=== PATIENT | male | born 1965 | race Caucasian/White ===

== ENCOUNTER 2017-09-03 22:41 | Emergency (ER) | payer MEDICAID ==
[~2017-09-03] VITALS: Ht 182.9 cm; Wt 84.4 kg
[2017-09-03 22:43] VITALS: BP 154/89
[2017-09-03] MEDS ORDERED: KETOROLAC 60 MG/2 ML IM ONE (23:00)
[2017-09-03] MEDS ORDERED: OXYcodone/APAP 5/325MG TABLET PO ONE (23:00)
[2017-09-03] MEDS ORDERED: OXYcodone/APAP 5/325MG TABLET ONE (23:18)
[2017-09-03] MEDS ORDERED: KETOROLAC 30 MG/1 ML ONE (23:18)
== END 2017-09-04 00:01 | disposition home or self-care (01) ==
LOC: ED 23:36
DX: M25.522 Pain in left elbow (principal); M25.532 Pain in left wrist; F17.210 Nicotine dependence, cigarettes, uncomplicated
CPT/HCPCS: 73080; 73110; 96372; 99284; J1885

== ENCOUNTER 2018-03-02 11:50 | Inpatient (IN) | payer MEDICAID ==
[~2018-03-02] VITALS: Ht 182.9 cm; Wt 82.4 kg
[2018-03-02] MEDS ORDERED: SODIUM CHLORIDE FLUSH 10ML SYR IVF ONE (12:30)
[2018-03-02] MEDS ORDERED: ONDANSETRON ODT 4 MG ONE (12:45)
[2018-03-02] MEDS ORDERED: MORPHINE SULFATE 4 MG/ML, 1ML ONE ×2 (12:45→15:26)
[2018-03-02] MEDS: MORPHINE SULFATE 4 MG/ML, 1ML IVPush PRN ×2 (12:48→15:33)
[2018-03-02 12:49] LABS: BASOPHILS # (AUTO) 0.07 x10^3/uL (0-0.1); BASOPHILS % (AUTO) 1 % (0-1); EOSINOPHILS # (AUTO) 0.03 x10^3/uL (0-0.4); EOSINOPHILS % (AUTO) 0 % (1-7); LYMPHOCYTES % (AUTO) 33 % (22-44); MD NO; MEAN CORPUSCULAR HEMOGLOBIN 31.4 pg (27.5-34.5); MEAN CORPUSCULAR HGB CONC 34.1 g/dL (33.2-36.2); MEAN CORPUSCULAR VOLUME 91.9 fL (81-97); MEAN PLATELET VOLUME 9.1 fL (7.4-10.4); MONOCYTES % (AUTO) 6 % (2-9); NEUTROPHILS # (AUTO) 4.71 x10^3/uL (1.8-6.8); NEUTROPHILS % (AUTO) 60 % (42-75); PLATELET COUNT 228 x10^3/uL (130-400); RED BLOOD COUNT 5.12 x10^6/uL (4.38-5.82)
[2018-03-02 12:58] LABS: ALANINE AMINOTRANSFERASE 36 U/L (12-78); ALBUMIN 4.1 g/dL (3.4-5.0); ANION GAP 7 mmol/L (5-15); CALCIUM 9.1 mg/dL (8.5-10.1); CHLORIDE 106 mmol/L (98-107); CREATININE 0.83 mg/dL (0.7-1.3)
[2018-03-02] MEDS ORDERED: ONDANSETRON ODT 8 MG PO ONE (13:00)
[2018-03-02 13:02] LABS: ALKALINE PHOSPHATASE 74 U/L (45-117); BILIRUBIN,TOTAL 0.6 mg/dL (0.2-1.0); TOTAL PROTEIN 7.3 g/dL (6.4-8.2); TROPONIN I < 0.015 ng/mL (0.000-0.045)
[2018-03-02] MEDS ORDERED: MORPHINE SULFATE 4 MG/ML, 1ML IVPush PRN (15:30)
[2018-03-02] MEDS ORDERED: ONDANSETRON 2MG/ML, 2ML IVP PRN (16:00)
[2018-03-02] MEDS ORDERED: NITROGLYCERIN 0.4 MG/SPRAY SL PRN (16:00)
[2018-03-02] MEDS ORDERED: morphine SULFATE 10 MG/ML, 1ML IV PRN (16:00)
[2018-03-02] MEDS ORDERED: NICOTINE 21 MG/24 HR PATCH.TD24 TD ONE (16:00)
[2018-03-02] MEDS ORDERED: KETOROLAC 30 MG/1 ML IVPush PRN (16:00)
[2018-03-02] MEDS ORDERED: ENOXAPARIN 40 MG/0.4 ML SQ SCH (16:00)
[2018-03-02] MEDS ORDERED: LIDODERM 5% PATCH TD SCH (16:00)
[2018-03-02] MEDS ORDERED: ACETAMINOPHEN 650 MG/20.3 ML UDC PO PRN (16:00)
[2018-03-02] MEDS ORDERED: NITROGLYCERIN 0.4 MG BOTTLE (25 TABS) SL PRN (16:00)
[2018-03-02] MEDS ORDERED: NITROGLYCERIN SINGLE TAB 0.4 MG SL PRN (16:00)
[2018-03-02 17:34] VITALS: BP 113/79
[2018-03-02] MEDS: METHOCARBAMOL 500 MG TABLET PO SCH ×2 (17:39→21:17)
[2018-03-02 18:22] LABS: TROPONIN I < 0.015 ng/mL (0.000-0.045)
[2018-03-02 18:47] VITALS: BP 109/72
[2018-03-02] MEDS: SODIUM CHLORIDE FLUSH 10ML SYR IVF SCH (21:18)
[2018-03-03 00:53] VITALS: BP 105/71
[2018-03-03 01:17] LABS: TROPONIN I < 0.015 ng/mL (0.000-0.045)
[2018-03-03 05:11] LABS: CHOL/HDL RATIO 3.4; LDL/HDL RATIO 2.2 (0.5-3.0)
[2018-03-03] MEDS ORDERED: ASPIRIN 325 MG TABLET EC PO SCH (06:00)
[2018-03-03] MEDS: METHOCARBAMOL 500 MG TABLET PO SCH ×2 (06:33→11:13)
[2018-03-03 07:10] VITALS: BP 114/74
[2018-03-03] MEDS: SODIUM CHLORIDE FLUSH 10ML SYR IVF SCH (08:31)
[2018-03-03] MEDS ORDERED: METH500T7 PO (13:13)
[2018-03-03] MEDS ORDERED: ACET650S21 PO (13:13)
[2018-03-03] MEDS ORDERED: IBUP-1484 PO (13:13)
== END 2018-03-03 14:26 | disposition home or self-care (01) | DRG 206 ==
LOC: ED 14:26 → EDIP 15:19 → 5SO 17:19 → DCLOUNGE 03-03 14:13
PROVIDERS: ADMIT Internal Medicine; ATTEND Internal Medicine
DX: M94.0 Chondrocostal junction syndrome [Tietze] (principal); F17.200 Nicotine dependence, unspecified, uncomplicated; Z79.82 Long term (current) use of aspirin; Z82.0 Family history of epilepsy and other diseases of the nervous system; Z83.3 Family history of diabetes mellitus; Z87.442 Personal history of urinary calculi
CPT/HCPCS: 36415; 71045; 78452; 80053; 80061; 83735; 84484; 85025; 93005; 93017; 96374; 96376; J1650; Q0162; A9502; C9898

== ENCOUNTER 2018-05-13 08:21 | Emergency (ER) | payer MEDICAID, OTHER ==
[~2018-05-13] VITALS: Ht 182.9 cm; Wt 81.3 kg
[~2018-05-13 08:21] MED LIST: ACET650S21 PO; IBUP-1484 PO; METH500T7 PO
[2018-05-13] MEDS ORDERED: KETOROLAC 30 MG/1 ML ONE (09:14)
[2018-05-13] MEDS ORDERED: HYDROcodone/APAP 5/325 TABLET ONE (09:50)
[2018-05-13] MEDS ORDERED: HYDROcodone/APAP 5/325 TABLET PO ONE (10:00)
[2018-05-13] MEDS ORDERED: KETOROLAC 30 MG/1 ML IM ONE (10:00)
[2018-05-13 10:31] VITALS: BP 115/68
== END 2018-05-13 10:33 | disposition home or self-care (01) ==
LOC: ED 10:15
DX: G89.11 Acute pain due to trauma (principal); M25.562 Pain in left knee; F17.210 Nicotine dependence, cigarettes, uncomplicated
CPT/HCPCS: 29505; 73564; 96372; 99284; J1885

== ENCOUNTER 2018-07-11 12:21 | Emergency (ER) | payer MEDICAID, OTHER ==
[~2018-07-11] VITALS: Ht 182.9 cm; Wt 81.3 kg
[2018-07-11 13:04] LABS: BASOPHILS # (AUTO) 0.05 x10^3/uL (0-0.1); BASOPHILS % (AUTO) 1 % (0-1); EOSINOPHILS # (AUTO) 0.04 x10^3/uL (0-0.4); EOSINOPHILS % (AUTO) 0 % (1-7); LYMPHOCYTES % (AUTO) 26 % (22-44); MD NO; MEAN CORPUSCULAR HEMOGLOBIN 31.6 pg (27.5-34.5); MEAN CORPUSCULAR HGB CONC 33.7 g/dL (33.2-36.2); MEAN CORPUSCULAR VOLUME 93.8 fL (81-97); MEAN PLATELET VOLUME 8.7 fL (7.4-10.4); MONOCYTES # (AUTO) 0.46 x10^3/uL (0.2-0.8); MONOCYTES % (AUTO) 5 % (2-9); NEUTROPHILS # (AUTO) 6.34 x10^3/uL (1.8-6.8); NEUTROPHILS % (AUTO) 68 % (42-75); PLATELET COUNT 262 x10^3/uL (130-400); RED BLOOD COUNT 5.58 x10^6/uL (4.38-5.82); RED CELL DISTRIBUTION WIDTH 14.3 % (9.4-14.8)
[2018-07-11 13:19] LABS: ALANINE AMINOTRANSFERASE 44 U/L (12-78); ALBUMIN 4.4 g/dL (3.4-5.0); ANION GAP 8 mmol/L (5-15); CALCIUM 9.7 mg/dL (8.5-10.1); CHLORIDE 103 mmol/L (98-107); CREATININE 0.89 mg/dL (0.7-1.3)
[2018-07-11 13:21] LABS: ALKALINE PHOSPHATASE 79 U/L (45-117); BILIRUBIN,TOTAL 0.6 mg/dL (0.2-1.0); TOTAL PROTEIN 8.3 g/dL (6.4-8.2)
[2018-07-11 14:34] LABS: CULTURE INDICATED? YES; MICROSCOPIC INDICATED
[2018-07-11] MEDS ORDERED: MAALOX/HYOSCYAMINE/LIDOCAINE 45 ML BTL PO ONE (15:00)
[2018-07-11] MEDS ORDERED: MAALOX/HYOSCYAMINE/LIDOCAINE 45 ML BTL ONE (15:23)
[2018-07-11 16:39] VITALS: BP 132/78
== END 2018-07-11 17:10 | disposition home or self-care (01) ==
LOC: ED 17:04
DX: R10.84 Generalized abdominal pain (principal); F17.200 Nicotine dependence, unspecified, uncomplicated
CPT/HCPCS: 36415; 80053; 81001; 83690; 85025; 87086; 99283

== ENCOUNTER 2019-11-24 15:37 | Emergency (ER) | payer OTHER ==
[~2019-11-24] VITALS: Ht 182.9 cm; Wt 86.8 kg
[~2019-11-24 15:37] MED LIST changes: -IBUP-1484 PO; +IBUP-1902 PO
[2019-11-24 15:39] VITALS: BP 135/72
[2019-11-24 16:14] LABS: BASOPHILS # (AUTO) 0.04 x10^3/uL (0-0.1); BASOPHILS % (AUTO) 1 % (0-1); EOSINOPHILS # (AUTO) 0.05 x10^3/uL (0-0.4); EOSINOPHILS % (AUTO) 1 % (1-7); LYMPHOCYTES # (AUTO) 2.39 x10^3/uL (1-3.4); LYMPHOCYTES % (AUTO) 29 % (22-44); MD NO; MEAN CORPUSCULAR HEMOGLOBIN 30.8 pg (27.5-34.5); MEAN CORPUSCULAR HGB CONC 33.7 g/dL (33.2-36.2); MEAN CORPUSCULAR VOLUME 91.6 fL (81-97); MEAN PLATELET VOLUME 8.8 fL (7.4-10.4); MONOCYTES # (AUTO) 0.56 x10^3/uL (0.2-0.8); MONOCYTES % (AUTO) 7 % (2-9); NEUTROPHILS # (AUTO) 5.18 x10^3/uL (1.8-6.8); NEUTROPHILS % (AUTO) 63 % (42-75); PLATELET COUNT 247 x10^3/uL (130-400); RED BLOOD COUNT 5.21 x10^6/uL (4.38-5.82); RED CELL DISTRIBUTION WIDTH 14.7 % (9.4-14.8)
[2019-11-24 16:25] LABS: ALBUMIN 4.3 g/dL (3.4-5.0); ANION GAP 6 mmol/L (5-15); CALCIUM 9.3 mg/dL (8.5-10.1); CHLORIDE 108 mmol/L (98-107); CREATININE 0.92 mg/dL (0.7-1.3)
[2019-11-24] MEDS ORDERED: KETOROLAC 30 MG/1 ML ONE (16:26)
[2019-11-24] MEDS ORDERED: MORPHINE SULFATE 4 MG/ML, 1ML ONE (16:26)
[2019-11-24] MEDS ORDERED: ONDANSETRON 2MG/ML, 2ML ONE (16:26)
[2019-11-24] MEDS ORDERED: MORPHINE SULFATE 4 MG/ML, 1ML IVPush PRN (16:30)
[2019-11-24] MEDS ORDERED: KETOROLAC 30 MG/1 ML IVPush ONE (16:30)
[2019-11-24] MEDS ORDERED: ONDANSETRON 2MG/ML, 2ML IVPush ONE (16:30)
== END 2019-11-24 18:34 | disposition home or self-care (01) ==
LOC: ED 16:09
DX: R10.9 Unspecified abdominal pain (principal); M54.5 Low back pain; F17.200 Nicotine dependence, unspecified, uncomplicated; Z87.442 Personal history of urinary calculi
CPT/HCPCS: 36415; 74176; 80048; 82040; 85025; 96374; 96375; 99284; J1885; J2270; J2405

== ENCOUNTER 2019-12-26 04:44 | Emergency (ER) | payer OTHER ==
[~2019-12-26] VITALS: Ht 182.9 cm; Wt 88.3 kg
[2019-12-26] MEDS ORDERED: ONDANSETRON 2MG/ML, 2ML ONE (05:26)
[2019-12-26] MEDS ORDERED: MORPHINE SULFATE 4 MG/ML, 1ML ONE (05:27)
[2019-12-26] MEDS ORDERED: ONDANSETRON 2MG/ML, 2ML IVPush ONE (05:30)
[2019-12-26] MEDS ORDERED: MORPHINE SULFATE 4 MG/ML, 1ML IVPush PRN (05:30)
[2019-12-26] MEDS ORDERED: SODIUM CHLORIDE 0.9% 1,000ML IVBOLUS ONE (05:30)
--- NOTE | 2019-12-26 05:51 | NUR ---
PT PRESENTS TO THE ER WITH C/O BILATERAL FLANK PAIN. REPORTS HX OF STONES. DENIES VOMITING, FEVER, OR HEMATURIA. NO INJURY/TRAUMA. UA AND LABS SENT. IVF INFUSING AND MEDS GIVEN.
[2019-12-26 05:55] LABS: BASOPHILS # (AUTO) 0.04 x10^3/uL (0-0.1); BASOPHILS % (AUTO) 1 % (0-1); EOSINOPHILS # (AUTO) 0.08 x10^3/uL (0-0.4); EOSINOPHILS % (AUTO) 1 % (1-7); LYMPHOCYTES # (AUTO) 2.11 x10^3/uL (1-3.4); LYMPHOCYTES % (AUTO) 27 % (22-44); MD NO; MEAN CORPUSCULAR HEMOGLOBIN 30.6 pg (27.5-34.5); MEAN CORPUSCULAR HGB CONC 33.3 g/dL (33.2-36.2); MEAN CORPUSCULAR VOLUME 91.9 fL (81-97); MEAN PLATELET VOLUME 9.4 fL (7.4-10.4); MONOCYTES % (AUTO) 6 % (2-9); NEUTROPHILS # (AUTO) 5.11 x10^3/uL (1.8-6.8); NEUTROPHILS % (AUTO) 65 % (42-75); PLATELET COUNT 221 x10^3/uL (130-400); RED BLOOD COUNT 5.32 x10^6/uL (4.38-5.82); RED CELL DISTRIBUTION WIDTH 14.4 % (9.4-14.8)
[2019-12-26 06:01] LABS: MICROSCOPIC NOT IND
[2019-12-26 06:04] LABS: CULTURE INDICATED? NO
[2019-12-26 06:05] LABS: ALBUMIN 3.8 g/dL (3.4-5.0); ANION GAP 5 mmol/L (5-15); CALCIUM 9.2 mg/dL (8.5-10.1); CHLORIDE 110 mmol/L (98-107)
[2019-12-26 06:09] LABS: ALANINE AMINOTRANSFERASE 43 U/L (12-78); ALKALINE PHOSPHATASE 91 U/L (45-117); BILIRUBIN,TOTAL 0.4 mg/dL (0.2-1.0); CREATININE 0.84 mg/dL (0.7-1.3); TOTAL PROTEIN 7.6 g/dL (6.4-8.2)
--- NOTE | 2019-12-26 06:22 | NUR ---
PT REPORTS PAIN NOW 5/10. RESTING AT THIS TIME. DENIES CURRENT NEEDS.
[2019-12-26 06:46] VITALS: BP 136/85
== END 2019-12-26 06:48 | disposition home or self-care (01) ==
LOC: ED 05:48
DX: S39.012A Strain of muscle, fascia and tendon of lower back, initial encounter (principal); R10.9 Unspecified abdominal pain; F17.290 Nicotine dependence, other tobacco product, uncomplicated; X58.XXXA Exposure to other specified factors, initial encounter; Y93.89 Activity, other specified; Y92.89 Other specified places as the place of occurrence of the external cause; Y99.8 Other external cause status
CPT/HCPCS: 36415; 80053; 81003; 83690; 85025; 96374; 96375; 99284; J2270; J2405; J7030

== ENCOUNTER 2020-05-20 07:24 | Observation (INO) | payer OTHER ==
[~2020-05-20] VITALS: Ht 182.9 cm; Wt 95.3 kg
--- NOTE | 2020-05-20 07:35 | NUR ---
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
--- NOTE | 2020-05-20 07:54 | NUR ---
PT WITH C/O SUBSTERNAL CHEST PAIN STARTING APPROX 0300 THIS AM. PT DENEIS N/V SOB, COUGH OR SICK CONTACTS. PT STATES HE HAS FAMILY HX OF HEART DISEASE. PAIN REPRODUCEABLE WITH TOUCH. ERP IN TO EVAL PT. AWAITING ORDERS. PT TO CARD, BP, CONT PUSLE OX MONITORS
[2020-05-20] MEDS ORDERED: MORPHINE SULFATE 4 MG/ML, 1ML ONE (07:58)
[2020-05-20] MEDS ORDERED: ONDANSETRON 2MG/ML, 2ML ONE (07:58)
[2020-05-20] MEDS ORDERED: ASPIRIN 81 MG TABLET CHEW ONE (07:58)
[2020-05-20] MEDS ORDERED: ONDANSETRON 2MG/ML, 2ML IVPush ONE (08:00)
[2020-05-20] MEDS ORDERED: MORPHINE SULFATE 4 MG/ML, 1ML IVPush PRN (08:00)
[2020-05-20] MEDS ORDERED: SODIUM CHLORIDE FLUSH 10ML SYR IVF ONE (08:00)
[2020-05-20] MEDS ORDERED: ASPIRIN 81 MG TABLET CHEW PO ONE (08:00)
[2020-05-20 08:29] LABS: BASOPHILS % (AUTO) 1 % (0-1); EOSINOPHILS % (AUTO) 1 % (1-7); LYMPHOCYTES % (AUTO) 20 % (22-44); MEAN CORPUSCULAR HEMOGLOBIN 30.9 pg (27.5-34.5); MEAN PLATELET VOLUME 8.8 fL (7.4-10.4); MONOCYTES % (AUTO) 7 % (2-9); NEUTROPHILS % (AUTO) 71 % (42-75); PLATELET COUNT 263 x10^3/uL (130-400); RED BLOOD COUNT 5.23 x10^6/uL (4.38-5.82); RED CELL DISTRIBUTION WIDTH 13.9 % (9.4-14.8)
[2020-05-20 08:30] LABS: MD NO
[2020-05-20 08:36] LABS: INTERNATIONAL NORMALIZED RATIO 0.97 (0.93-1.1)
[2020-05-20 08:41] LABS: ALANINE AMINOTRANSFERASE 39 U/L (12-78); ALBUMIN 3.8 g/dL (3.4-5.0); ANION GAP 5 mmol/L (5-15); CALCIUM 9.3 mg/dL (8.5-10.1); CHLORIDE 107 mmol/L (98-107); CREATININE 0.78 mg/dL (0.7-1.3)
[2020-05-20 08:45] LABS: ALKALINE PHOSPHATASE 87 U/L (45-117); BILIRUBIN,TOTAL 0.3 mg/dL (0.2-1.0); TOTAL PROTEIN 7.3 g/dL (6.4-8.2); TROPONIN I < 0.015 ng/mL (0.000-0.045)
[2020-05-20] MEDS ORDERED: NITROGLYCERIN SINGLE TAB 0.4 MG SL PRN (10:00)
--- NOTE | 2020-05-20 10:28 | NUR ---
REPORT TO RECIEVING RN, AWAITING TRANSPORT
[2020-05-20] MEDS ORDERED: KETOROLAC 30 MG/1 ML IV PRN (11:00)
[2020-05-20] MEDS ORDERED: ONDANSETRON 2MG/ML, 2ML IVPush PRN (11:00)
[2020-05-20] MEDS ORDERED: ACETAMINOPHEN 325 MG TABLET PO PRN (11:00)
[2020-05-20] MEDS ORDERED: LABETALOL 5MG/ML, 20ML IVPush PRN (11:00)
[2020-05-20] MEDS ORDERED: NITROGLYCERIN 0.4 MG BOTTLE (25 TABS) SL PRN (11:00)
[2020-05-20] MEDS ORDERED: MELATONIN 5 MG TABLET PO PRN (11:00)
[2020-05-20 11:10] VITALS: BP 133/85
[2020-05-20] MEDS: NICOTINE 14MG/24 HR PATCH.TD24 TD SCH (12:05)
[2020-05-20] MEDS: ENOXAPARIN 40 MG/0.4 ML SQ SCH (12:05)
[2020-05-20 13:20] VITALS: BP 114/76
[2020-05-20 14:03] LABS: TROPONIN I < 0.015 ng/mL (0.000-0.045)
[2020-05-20] MEDS ORDERED: OXYcodone IR 5MG TABLET PO PRN (15:30)
[2020-05-20 19:36] VITALS: BP 124/85
[2020-05-20 20:24] LABS: TROPONIN I < 0.015 ng/mL (0.000-0.045)
[2020-05-20] MEDS: SODIUM CHLORIDE FLUSH 10ML SYR IVF SCH (21:00)
[2020-05-20] MEDS ORDERED: ATORVASTATIN 40 MG TABLET PO SCH (21:00)
[2020-05-21 00:08] VITALS: BP 116/74
[2020-05-21] MEDS ORDERED: ASPIRIN 81 MG TABLET EC PO SCH (06:00)
[2020-05-21 06:31] LABS: CHOL/HDL RATIO 4.3; LDL/HDL RATIO 2.8 (0.5-3.0)
[2020-05-21 06:45] VITALS: BP 111/72
[2020-05-21] MEDS ORDERED: PANTOPRAZOLE 40MG TABLET PO SCH (07:30)
[2020-05-21] MEDS ORDERED: REGADENOSON 0.4 MG/5 ML SYRINGE ONE (08:46)
[2020-05-21] MEDS: SODIUM CHLORIDE FLUSH 10ML SYR IVF SCH (08:51)
[2020-05-21] MEDS: NICOTINE 14MG/24 HR PATCH.TD24 TD SCH (11:07)
[2020-05-21] MEDS: ENOXAPARIN 40 MG/0.4 ML SQ SCH (11:07)
[2020-05-21] MEDS ORDERED: FLU VACC QS2020-21(6MOS UP)/PF 60MCG/0.5 ML SYR IM-VACC ONE (11:30)
[2020-05-21 12:32] VITALS: BP 128/85
[2020-05-21] MEDS ORDERED: ATOR40TA78 PO (15:08)
== END 2020-05-21 16:41 | disposition home or self-care (01) ==
LOC: ED 09:21 → EDIP 09:33 → INTOOBSV 09:33 → 5SO 10:40
PROVIDERS: ADMIT Hospitalist; ATTEND Hospitalist
DX: R07.89 Other chest pain (principal); N28.1 Cyst of kidney, acquired; E78.5 Hyperlipidemia, unspecified; I50.9 Heart failure, unspecified; I07.1 Rheumatic tricuspid insufficiency; Z87.19 Personal history of other diseases of the digestive system; F17.210 Nicotine dependence, cigarettes, uncomplicated; Z87.442 Personal history of urinary calculi; Z23 Encounter for immunization
CPT/HCPCS: 36415; 71045; 78452; 80053; 80061; 83690; 83880; 84484; 85025; 85610; 90471; 90686; 93005; 93017; 93306; 96372; 96374; 96375; 99285; A9502; G0378; J1650; J1885; J2270; J2405; J2785

== ENCOUNTER 2020-07-30 08:47 | Emergency (ER) | payer OTHER ==
[~2020-07-30] VITALS: Ht 182.9 cm; Wt 90.4 kg
[~2020-07-30 08:47] MED LIST changes: +ATOR40TA78 PO
[2020-07-30] MEDS ORDERED: KETOROLAC 60 MG/2 ML ONE (09:21)
[2020-07-30] MEDS ORDERED: METHOCARBAMOL 750 MG TABLET ONE (09:21)
[2020-07-30] MEDS ORDERED: HYDROmorphone 1 MG/ML, 1ML INJ ONE (09:22)
[2020-07-30] MEDS ORDERED: HYDROmorphone 2 MG/ML, 1ML IM ONE (09:30)
[2020-07-30] MEDS ORDERED: METHOCARBAMOL 750 MG TABLET PO ONE (09:30)
[2020-07-30] MEDS ORDERED: KETOROLAC 30 MG/1 ML IM ONE (09:30)
[2020-07-30 11:05] VITALS: BP 121/74
== END 2020-07-30 11:07 | disposition home or self-care (01) ==
LOC: ED 10:20
DX: S39.012A Strain of muscle, fascia and tendon of lower back, initial encounter (principal); F17.200 Nicotine dependence, unspecified, uncomplicated; X58.XXXA Exposure to other specified factors, initial encounter; Y93.89 Activity, other specified; Y92.89 Other specified places as the place of occurrence of the external cause; Y99.8 Other external cause status
CPT/HCPCS: 72110; 96372; 99284; J1170; J1885

== ENCOUNTER 2020-09-18 13:50 | Emergency (ER) | payer OTHER ==
[~2020-09-18] VITALS: Ht 182.9 cm; Wt 91.2 kg
[~2020-09-18 13:50] MED LIST changes: +METH-639 PO; -METH500T7 PO
[2020-09-18] MEDS ORDERED: HYDROmorphone 1 MG/ML, 1ML INJ ONE (14:27)
[2020-09-18] MEDS ORDERED: ONDANSETRON 2MG/ML, 2ML ONE (14:27)
[2020-09-18] MEDS ORDERED: HYDROmorphone 1 MG/ML, 1ML INJ IM ONE (14:30)
[2020-09-18] MEDS ORDERED: ONDANSETRON ODT 4 MG PO ONE (14:30)
[2020-09-18 14:35] LABS: BASOPHILS % (AUTO) 1 % (0-1); EOSINOPHILS % (AUTO) 1 % (1-7); LYMPHOCYTES % (AUTO) 31 % (22-44); MD NO; MEAN CORPUSCULAR HEMOGLOBIN 31.1 pg (27.5-34.5); MEAN CORPUSCULAR HGB CONC 34.4 g/dL (33.2-36.2); MEAN PLATELET VOLUME 8.6 fL (7.4-10.4); MONOCYTES % (AUTO) 7 % (2-9); NEUTROPHILS % (AUTO) 60 % (42-75); PLATELET COUNT 242 x10^3/uL (130-400); RED BLOOD COUNT 5.11 x10^6/uL (4.38-5.82); RED CELL DISTRIBUTION WIDTH 14.1 % (9.4-14.8)
[2020-09-18 14:44] LABS: ANION GAP 5 mmol/L (5-15); CALCIUM 8.7 mg/dL (8.5-10.1); CHLORIDE 109 mmol/L (98-107); CREATININE 0.78 mg/dL (0.7-1.3)
--- NOTE | 2020-09-18 14:55 | NUR ---
PT COMPAINED OF LLQ PAIN. IV INSERTED AND MEDS GIVEN PER OCT. PATIENT POSITIONED FOR COMFORT. GABBYN.
[2020-09-18] MEDS ORDERED: OMNIPAQUE 350 MG/ML, 100ML BOTTLE ONE (15:25)
[2020-09-18] MEDS ORDERED: CEFTRIAXONE PMX 1GM/50ML 50 ML IV ONE (15:30)
[2020-09-18] MEDS ORDERED: metroNIDAZOLE 500 MG TABLET PO ONE (15:30)
[2020-09-18] MEDS ORDERED: ONDANSETRON ODT 4 MG ONE (16:01)
[2020-09-18] MEDS ORDERED: metroNIDAZOLE 500 MG TABLET ONE (16:01)
[2020-09-18] MEDS ORDERED: CEFTRIAXONE PMX 1GM/50ML 50 ML ONE (16:01)
[2020-09-18 16:04] LABS: MICROSCOPIC NOT IND
--- NOTE | 2020-09-18 16:22 | NUR ---
PT GIVEN MEDS PER MAR. GIVEN WATER AND POSITIONED FOR COMFORT. UPDATED PATIENT ON PLAN OF CARE. GREY.
[2020-09-18 17:18] VITALS: BP 145/87
== END 2020-09-18 17:20 | disposition home or self-care (01) ==
LOC: ED 15:42
DX: K57.32 Diverticulitis of large intestine without perforation or abscess without bleeding (principal); R10.32 Left lower quadrant pain; F17.210 Nicotine dependence, cigarettes, uncomplicated
CPT/HCPCS: 36415; 74177; 80048; 81003; 82040; 85025; 96365; 96372; 99285; J0696; J1170; Q0162; Q9967

== ENCOUNTER 2020-12-20 12:43 | Emergency (ER) | payer OTHER ==
[~2020-12-20] VITALS: Ht 182.9 cm; Wt 91.0 kg
--- NOTE | 2020-12-20 12:52 | NUR ---
EKG IN TRIAGE
--- NOTE | 2020-12-20 13:06 | NUR ---
PT AMBULATORY TO ROOM 11 W/ C/O CP STARTED 2 DAYS AGO W/ PAIN RADIATING TO L ARM/WRIST. PT STATES IT STARTED WHILE HE WAS AT WORK. 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 STATES WHEN HE STOPS WORKING THE CP GOES AWAY AND WHEN HE BEGINS TO WORK AGAIN STARTS EXPERIENCING CP. PT STATES HE WAS HERE 2 MONTHS AGO FOR SAME AND WAS TOLD HE HAD +STRESS TEST W/ HLD. PT RESTING ON GURNEY. NADN. MONITORS APPLIED. WARM BLANKET PROVIDED. 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 ERP DR. TEJADA AT BEDSIDE FOR EVAL.
[2020-12-20] MEDS ORDERED: ASPIRIN 81 MG TABLET CHEW ONE (13:09)
[2020-12-20 13:20] LABS: BASOPHILS % (AUTO) 1 % (0-1); EOSINOPHILS % (AUTO) 1 % (1-7); LYMPHOCYTES % (AUTO) 26 % (22-44); MEAN CORPUSCULAR HEMOGLOBIN 31.1 pg (27.5-34.5); MEAN CORPUSCULAR HGB CONC 34.5 g/dL (33.2-36.2); MEAN PLATELET VOLUME 8.8 fL (7.4-10.4); MONOCYTES % (AUTO) 8 % (2-9); NEUTROPHILS % (AUTO) 65 % (42-75); PLATELET COUNT 231 x10^3/uL (130-400); RED BLOOD COUNT 5.39 x10^6/uL (4.38-5.82); RED CELL DISTRIBUTION WIDTH 14.4 % (9.4-14.8)
[2020-12-20 13:22] LABS: MD NO
[2020-12-20 13:26] LABS: ALANINE AMINOTRANSFERASE 48 U/L (12-78); ANION GAP 5 mmol/L (5-15); CALCIUM 8.8 mg/dL (8.5-10.1); CHLORIDE 110 mmol/L (98-107); CREATININE 0.82 mg/dL (0.7-1.3)
[2020-12-20] MEDS ORDERED: SODIUM CHLORIDE FLUSH 10ML SYR IVF ONE (13:30)
[2020-12-20] MEDS ORDERED: ASPIRIN 81 MG TABLET CHEW PO ONE (13:30)
[2020-12-20 13:31] LABS: ALKALINE PHOSPHATASE 97 U/L (45-117); BILIRUBIN,TOTAL 0.4 mg/dL (0.2-1.0); TOTAL PROTEIN 7.5 g/dL (6.4-8.2); TROPONIN I < 0.015 ng/mL (0.000-0.045)
--- NOTE | 2020-12-20 13:57 | NUR ---
PT CHART REVIEWED AND PLACED FOR RECHECK.
[2020-12-20 14:19] VITALS: BP 129/80
--- NOTE | 2020-12-20 14:19 | NUR ---
PT RESTING ON GURNEY. NADN. CONWAY.
--- NOTE | 2020-12-20 15:20 | NUR ---
Patient/Caregiver given discharge instructions and they have confirmed that they understand the instructions. Patient ambulatory with steady gait.
--- NOTE | 2020-12-23 12:10 | NUR ---
LATE ENTRY: THIS RN APPLIED WRIST SPLINT PRIOR TO DC
== END 2020-12-20 15:22 | disposition home or self-care (01) ==
LOC: ED 13:19
DX: R07.2 Precordial pain (principal); M25.532 Pain in left wrist; F17.200 Nicotine dependence, unspecified, uncomplicated
CPT/HCPCS: 29125; 36415; 71045; 80053; 83690; 84484; 85025; 93005; 99285

== ENCOUNTER 2021-01-26 12:20 | Emergency (ER) | payer OTHER ==
[~2021-01-26] VITALS: Ht 182.9 cm; Wt 91.1 kg
--- NOTE | 2021-01-26 13:01 | NUR ---
ACCESS NURSE: URINED COLLECTED AND SENT TO LAB
[2021-01-26 13:29] LABS: MICROSCOPIC INDICATED
--- NOTE | 2021-01-26 14:00 | NUR ---
Patient ambulated to triage for recheck @1400
--- NOTE | 2021-01-26 14:21 | NUR ---
PT CAME IN [place] LEFT FLANK PAIN THAT STARTED AROUND 0500 THIS MORNING. PT RESTING IN [facility]. UA SENT. AWAITING PROVIDER AT THIS TIME
[2021-01-26] MEDS ORDERED: ONDANSETRON 2MG/ML, 2ML ONE (14:52)
[2021-01-26] MEDS ORDERED: HYDROmorphone 1 MG/ML, 1ML INJ ONE (14:52)
[2021-01-26] MEDS ORDERED: KETOROLAC 30 MG/1 ML ONE (14:52)
[2021-01-26] MEDS ORDERED: HYDROmorphone 1 MG/ML, 1ML INJ IVPush PRN (15:00)
[2021-01-26] MEDS ORDERED: ONDANSETRON 2MG/ML, 2ML IVPush ONE (15:00)
[2021-01-26] MEDS ORDERED: SODIUM CHLORIDE 0.9% 1,000ML IVBOLUS ONE (15:00)
[2021-01-26] MEDS ORDERED: KETOROLAC 30 MG/1 ML IVPush ONE (15:00)
[2021-01-26] MEDS ORDERED: SODIUM CHLORIDE FLUSH 10ML SYR IVF ONE (15:00)
--- NOTE | 2021-01-26 15:15 | NUR ---
MEDICATED PER MAR
[2021-01-26 15:49] VITALS: BP 112/69
--- NOTE | 2021-01-26 15:49 | NUR ---
PT REPORTS "IM FEELING MUCH BETTER. THAT MEDICINE TOOK THE EDGE OFF"
[2021-01-26 15:53] LABS: BASOPHILS % (AUTO) 1 % (0-1); EOSINOPHILS % (AUTO) 0 % (1-7); LYMPHOCYTES % (AUTO) 28 % (22-44); MEAN CORPUSCULAR HEMOGLOBIN 30.9 pg (27.5-34.5); MEAN PLATELET VOLUME 9.2 fL (7.4-10.4); MONOCYTES % (AUTO) 8 % (2-9); NEUTROPHILS % (AUTO) 63 % (42-75); PLATELET COUNT 241 x10^3/uL (130-400); RED BLOOD COUNT 5.55 x10^6/uL (4.38-5.82); RED CELL DISTRIBUTION WIDTH 14.4 % (9.4-14.8)
[2021-01-26 16:04] LABS: ALBUMIN 4.1 g/dL (3.4-5.0); ANION GAP 5 mmol/L (5-15); CALCIUM 9.5 mg/dL (8.5-10.1); CHLORIDE 108 mmol/L (98-107); CREATININE 0.86 mg/dL (0.7-1.3)
== END 2021-01-26 17:40 | disposition home or self-care (01) ==
LOC: ED 15:51
DX: R10.9 Unspecified abdominal pain (principal); F17.200 Nicotine dependence, unspecified, uncomplicated
CPT/HCPCS: 36415; 74176; 80048; 81001; 82040; 85025; 96361; 96374; 96375; 99284; J1170; J1885; J2405; J7030

== ENCOUNTER 2021-03-01 18:23 | Emergency (ER) | payer OTHER ==
[~2021-03-01] VITALS: Ht 182.9 cm; Wt 92.1 kg
[2021-03-01] MEDS ORDERED: SODIUM CHLORIDE FLUSH 10ML SYR IVF ONE (19:30)
[2021-03-01] MEDS ORDERED: KETOROLAC 30 MG/1 ML IVPush ONE (19:30)
[2021-03-01] MEDS ORDERED: SODIUM CHLORIDE 0.9% 1,000ML IV ONE (19:30)
[2021-03-01] MEDS ORDERED: ONDANSETRON 2MG/ML, 2ML IVPush ONE (19:30)
--- NOTE | 2021-03-01 19:48 | NUR ---
First contact with patient: Patient presents to ER c/o left flank pain since approx 1800. Patient states the pain woke him up. Denies nausea. States he also had LLQ abd pain which has since resolved. Hx of kidney stones; feels similar but worse. Patient is in NAd. Respirations even and unlabored.
[2021-03-01 19:51] LABS: BASOPHILS % (AUTO) 1 % (0-1); EOSINOPHILS % (AUTO) 1 % (1-7); LYMPHOCYTES % (AUTO) 34 % (22-44); MEAN CORPUSCULAR HEMOGLOBIN 31.1 pg (27.5-34.5); MEAN CORPUSCULAR HGB CONC 34.1 g/dL (33.2-36.2); MEAN PLATELET VOLUME 8.7 fL (7.4-10.4); MONOCYTES % (AUTO) 8 % (2-9); NEUTROPHILS % (AUTO) 57 % (42-75); PLATELET COUNT 243 x10^3/uL (130-400); RED BLOOD COUNT 5.15 x10^6/uL (4.38-5.82); RED CELL DISTRIBUTION WIDTH 14.3 % (9.4-14.8)
[2021-03-01 20:00] LABS: CALCIUM 9.4 mg/dL (8.5-10.1); CHLORIDE 110 mmol/L (98-107)
[2021-03-01] MEDS ORDERED: KETOROLAC 30 MG/1 ML ONE (20:00)
[2021-03-01 20:02] LABS: MICROSCOPIC INDICATED
[2021-03-01 20:08] LABS: ANION GAP 2 mmol/L (5-15)
[2021-03-01] MEDS ORDERED: MORPHINE SULFATE 4 MG/ML, 1ML IVPush PRN (20:30)
[2021-03-01] MEDS ORDERED: MORPHINE SULFATE 4 MG/ML, 1ML ONE (20:33)
[2021-03-01] MEDS ORDERED: ONDANSETRON 2MG/ML, 2ML ONE (20:33)
[2021-03-01 22:31] VITALS: BP 126/63
--- NOTE | 2021-03-01 22:31 | NUR ---
Discharge instructions given. All questions and concerns addressed. Patient ambulatory with a steady gait. Belongings with patient.
== END 2021-03-01 22:34 | disposition home or self-care (01) ==
LOC: ED 20:00
DX: N20.2 Calculus of kidney with calculus of ureter (principal); F17.200 Nicotine dependence, unspecified, uncomplicated
CPT/HCPCS: 36415; 76770; 80048; 81001; 82040; 85025; 87086; 96374; 96375; 99284; J1885; J2270; J2405; J7030

== ENCOUNTER 2021-03-12 06:27 | Emergency (ER) | payer OTHER ==
[~2021-03-12] VITALS: Ht 182.9 cm; Wt 90.9 kg
--- NOTE | 2021-03-12 06:38 | NUR ---
Patient presents to ER c/o left flank pain into his low abd and diarrhea since approx 0500. Hx of kidney stones; feels the same. Denies N/V. Denies blood in stool. Patient is in obvious discomfort. Respirations even and unlabored.
--- NOTE | 2021-03-12 06:43 | NUR ---
Urine collected and sent to lab.
[2021-03-12] MEDS ORDERED: MORPHINE SULFATE 4 MG/ML, 1ML ONE (06:57)
[2021-03-12] MEDS ORDERED: KETOROLAC 30 MG/1 ML ONE (06:57)
[2021-03-12] MEDS ORDERED: ONDANSETRON 2MG/ML, 2ML ONE (06:57)
[2021-03-12] MEDS ORDERED: SODIUM CHLORIDE FLUSH 10ML SYR IVF ONE (07:00)
[2021-03-12] MEDS ORDERED: MORPHINE SULFATE 4 MG/ML, 1ML IVPush PRN (07:00)
[2021-03-12] MEDS ORDERED: ONDANSETRON 2MG/ML, 2ML IVPush ONE (07:00)
[2021-03-12] MEDS ORDERED: KETOROLAC 30 MG/1 ML IVPush ONE (07:00)
[2021-03-12] MEDS ORDERED: DEXAMETHASONE 4 MG/ML, 1ML IVPush ONE (07:00)
--- NOTE | 2021-03-12 07:22 | NUR ---
RADIOLOGY WALKING PT TO XRAY
[2021-03-12 08:03] LABS: MICROSCOPIC INDICATED
[2021-03-12 08:50] VITALS: BP 125/67
--- NOTE | 2021-03-12 09:17 | NUR ---
PT REC'VD DISCHARGE INSTRUCTIONS AND EDUCATION. PT HAD NO FURTHER QUESTIONS. PT AMBULATED TO DC AREA, STEADY GAIT
== END 2021-03-12 09:21 | disposition home or self-care (01) ==
LOC: ED 06:38
DX: N20.1 Calculus of ureter (principal); R31.9 Hematuria, unspecified; F17.200 Nicotine dependence, unspecified, uncomplicated; Z91.041 Radiographic dye allergy status
CPT/HCPCS: 74018; 81001; 96374; 96375; 99284; J1885; J2270; J2405

== ENCOUNTER 2021-05-06 15:01 | Emergency (ER) | payer OTHER ==
[~2021-05-06] VITALS: Ht 182.9 cm; Wt 92.4 kg
[2021-05-06] MEDS ORDERED: ASPIRIN 81 MG TABLET CHEW PO ONE (15:30)
[2021-05-06 16:19] LABS: BASOPHILS % (AUTO) 1 % (0-1); EOSINOPHILS % (AUTO) 1 % (1-7); LYMPHOCYTES % (AUTO) 36 % (22-44); MEAN CORPUSCULAR HEMOGLOBIN 31.8 pg (27.5-34.5); MEAN CORPUSCULAR HGB CONC 34.9 g/dL (33.2-36.2); MONOCYTES % (AUTO) 8 % (2-9); NEUTROPHILS % (AUTO) 54 % (42-75); PLATELET COUNT 213 x10^3/uL (130-400); RED BLOOD COUNT 5.04 x10^6/uL (4.38-5.82); RED CELL DISTRIBUTION WIDTH 14.2 % (9.4-14.8)
[2021-05-06 16:31] LABS: ALBUMIN 3.6 g/dL (3.4-5.0); ANION GAP 4 mmol/L (5-15); CALCIUM 8.8 mg/dL (8.5-10.1); CHLORIDE 107 mmol/L (98-107)
[2021-05-06 16:36] LABS: ALANINE AMINOTRANSFERASE 50 U/L (12-78); ALKALINE PHOSPHATASE 96 U/L (45-117); BILIRUBIN,TOTAL 0.3 mg/dL (0.2-1.0); CREATININE 0.73 mg/dL (0.7-1.3); TOTAL PROTEIN 7.3 g/dL (6.4-8.2); TROPONIN I < 0.015 ng/mL (0.000-0.045)
[2021-05-06 17:07] VITALS: BP 113/80
--- NOTE | 2021-05-06 19:17 | NUR ---
not in lobby
--- NOTE | 2021-05-06 19:30 | NUR ---
not in lobby
--- NOTE | 2021-05-06 19:48 | NUR ---
not in lobby
== END 2021-05-06 19:48 | disposition left against medical advice (07) ==
LOC: ED 15:01
DX: R07.89 Other chest pain (principal)
CPT/HCPCS: 36415; 71045; 80053; 84484; 85025; 93005; 99285